=== PATIENT | male | born 1985 | race Native Hawaiian/Other Pacific Islander ===

== ENCOUNTER 2021-01-21 14:30 | Emergency (ER) | payer OTHER ==
[~2021-01-21] VITALS: Ht 177.8 cm; Wt 79.4 kg
[2021-01-21 14:30] VITALS: TEMP 97.8
[2021-01-21 15:10] LABS: PLATELET COUNT 336 K/uL (142-355)
[2021-01-21 15:13] LABS: POTASSIUM 2.7 mmol/L (3.6-5.2); SODIUM 145 mmol/L (136-145)
[2021-01-21 15:47] LABS: PARTIAL THROMBOPLASTIN TIME 20.5 SECONDS (24.5-33.6)
[2021-01-21 17:44] VITALS: BP 112/72
== END 2021-01-21 17:44 | disposition home or self-care (01) ==
LOC: ED 14:37
PROVIDERS: Hospitalist
DX: E87.6 Hypokalemia (principal); F19.10 Other psychoactive substance abuse, uncomplicated
CPT/HCPCS: 80053; 80307; 80320; 81000; 82550; 83880; 84484; 85027; 85610; 85730; 93005; 96360; 99284